=== PATIENT | female | born 1930 | race Caucasian/White ===

== ENCOUNTER 2016-11-14 10:23 | Emergency (ER) | payer MEDICARE ==
--- NOTE | 2016-11-14 10:28 | UC ---
Skin Complaint HPI - HPI Summary HPI Summary: 86 YEAR OLD MALE PRESENTS WITH COMPLAINS OF LOWER ABDOMINAL WOUND FROM A PREVIOUS SCAR. - History of Current Complaint Time Seen by Provider: 11/14/16 10:24 Stated Complaint: SKIN COMPLAINT STOMACH Hx Obtained From: Patient Onset/Duration: Gradual Onset Skin Exposure Onset/Duration: Minutes Ago Timing: Constant Onset Severity: Moderate Current Severity: Moderate Pain Scale Used: 0-10 Numeric - 2 Location: Discrete Aggravating: Nothing Alleviating: Nothing Associated Signs & Symptoms: Positive: Negative - Allergy/Home Medications Allergies/Adverse Reactions: Allergies Allergy/AdvReac Type Severity Reaction Status Date / Time Adhesive Tape AdvReac See Comment Verified 11/14/16 10:31 Home Medications: Home Medications Cholecalciferol [Vitamin D3] 1,000 unit PO DAILY 11/14/16 [History Confirmed ] Review of Systems Constitutional: Negative Skin: Other - LOWER ABDOMINAL WOUND Eyes: Negative ENT: Negative Respiratory: Negative Cardiovascular: Negative Gastrointestinal: Negative Genitourinary: Negative Motor: Negative Neurovascular: Negative Musculoskeletal: Negative Neurological: Negative Psychological: Negative All Other Systems Reviewed And Are Negative: Yes PMH/Surg Hx/FS Hx/Imm Hx Previously Healthy: Yes - Surgical History Surgical History: Yes Surgery Procedure, Year, and Place: COLOSTOMY WITH REVERSAL. 2 RIGHT HIP REPLACEMENTS. HEART VALVE REPAIR. 2 C-SECTS. TYRONE BY-PASS. PACEMAKER. FLUID REMOVED FROM THE BRAIN. LUMPECTOMY - Family History Known Family History: Positive: Hypertension - Social History Alcohol Use: None Substance Use Type: None, Other Smoking Status (MU): Never Smoked Tobacco Physical Exam Triage Information Reviewed: Yes Eye Exam: Normal ENT Exam: Normal Dental Exam: Normal Neck exam: Normal Neck: Positive: 1 Respiratory Exam: Normal Cardiovascular Exam: Normal Abdominal Exam: Normal Musculoskeletal Exam: Normal Neurological Exam: Normal Psychological Exam: Normal Skin: Positive: Other - LOWER ABDOMINAL WOUND Course/Dx - Diagnoses Provider Diagnoses: LOWER ABDOMINAL WOUND Discharge - Discharge Plan Condition: Stable Disposition: HOME Prescriptions: Cephalexin CAP* [Keflex CAP*] 500 mg PO TID #21 cap Mupirocin 2% OINT* [Bactroban 2 % Oint*] 1 applic TOPICAL BID #1 tube Patient Education Materials: Wound Infection (ED), Acute Rash (ED) Referrals: Tejinder Benavides MD [Primary Care Provider] -
[2016-11-14 10:37] VITALS: BP 150/61
--- NOTE | 2016-11-17 07:21 | UC ---
Progress - Progress Note Progress Note: wound culture : +staph resistance to cefazolin, please have the pt. stop keflex will ERx Bactrim ds bid x 10 days
== END 2016-11-14 10:57 | disposition home or self-care (01) ==
LOC: UCCORT 10:23
DX: S31.109A Unspecified open wound of abdominal wall, unspecified quadrant without penetration into peritoneal cavity, initial encounter (principal); X58.XXXA Exposure to other specified factors, initial encounter; Y93.9 Activity, unspecified; Y92.9 Unspecified place or not applicable; Z91.048 Other nonmedicinal substance allergy status; Z96.641 Presence of right artificial hip joint; Z95.0 Presence of cardiac pacemaker; Z95.1 Presence of aortocoronary bypass graft
CPT/HCPCS: 87070; 87077; 87186; 87205; 87640; 87641; 99212; G0463

== ENCOUNTER 2017-09-12 09:17 | Day surgery (SDC) | payer MEDICARE ==
[~2017-09-12 09:17] MED LIST: Buffered Lidocaine 0.9% SYRIN* 5 ML/SYR SYRINGE INTRADERM ONE
[2017-09-12] MEDS ORDERED: Propofol* 10 MG/ML 20 ML BTL IV PUSH ONE (09:30)
[2017-09-12] MEDS ORDERED: fentaNYL* 50 MCG/ML 2 ML VIAL (100 MCG VIAL) ONE (09:30)
[2017-09-12] MEDS ORDERED: Midazolam* 1 MG/ML 2 ML VIAL (2 MG) ONE (09:30)
[2017-09-12] MEDS ORDERED: Lidocaine 2% PF * 5 ML VIAL ONE (09:30)
[2017-09-12] MEDS ORDERED: ceFAZolin 2 GM PREMIX (*) 2 GM/50 ML BAG IVPB ONE (09:33)
[2017-09-12] MEDS ORDERED: Lidocain 1% EPI 1:100,000 * 30 ML MDV ONE (10:57)
[2017-09-12] MEDS ORDERED: Acetaminophen TAB* 325 MG PO PRN (11:45)
[2017-09-12] MEDS ORDERED: Ondansetron INJ* 2 MG/ML VIAL IV PRN (11:45)
[2017-09-12] MEDS ORDERED: PROCHLORPERAZINE INJ 5 MG/ML 2 ML VIAL IV PRN (11:45)
[2017-09-12] MEDS ORDERED: Naloxone* 0.4 MG/ML 1 ML VIAL IV PRN (11:45)
[2017-09-12] MEDS ORDERED: oxyCODONE/Acetamin 5/325 MG* TAB PO PRN (11:45)
[2017-09-12] MEDS ORDERED: fentaNYL* 50 MCG/ML 2 ML VIAL (100 MCG VIAL) IV PRN (11:45)
[2017-09-12] MEDS ORDERED: HYDROmorphone INJ* 1 MG/ML CARPUJECT SYRINGE IV PRN (11:45)
[2017-09-12 13:28] VITALS: BP 147/65
== END 2017-09-12 13:39 | disposition home or self-care (01) ==
LOC: OR 09:17
PROVIDERS: ATTEND Plastic Surgery
DX: C44.311 Basal cell carcinoma of skin of nose (principal); I25.10 Atherosclerotic heart disease of native coronary artery without angina pectoris; I25.2 Old myocardial infarction; Z95.1 Presence of aortocoronary bypass graft; N18.9 Chronic kidney disease, unspecified; K21.9 Gastro-esophageal reflux disease without esophagitis; E03.9 Hypothyroidism, unspecified; E11.21 Type 2 diabetes mellitus with diabetic nephropathy; Z85.3 Personal history of malignant neoplasm of breast; Z95.0 Presence of cardiac pacemaker; D64.9 Anemia, unspecified; G40.89 Other seizures; Z87.820 Personal history of traumatic brain injury
CPT/HCPCS: 88305; 88331; 88332; J0690; J2250; J2704; J3010